=== PATIENT | female | born 1990 | race Caucasian/White ===

== ENCOUNTER 2016-10-19 00:48 | Emergency (ER) | payer MEDICAID ==
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
[2016-10-19 04:49] VITALS: BP 98/63
== END 2016-10-19 03:55 | disposition home or self-care (01) ==
LOC: ER 00:48
DX: R20.9 Unspecified disturbances of skin sensation (principal); M79.642 Pain in left hand; F17.200 Nicotine dependence, unspecified, uncomplicated